=== PATIENT | female | born 1995 | race Caucasian/White ===

== ENCOUNTER 2016-09-08 22:54 | Emergency (ER) | payer BC ==
[~2016-09-08] VITALS: Ht 165.1 cm; Wt 55.0 kg
[2016-09-08] MEDS ORDERED: DESO1TAB17 PO (23:08)
[2016-09-09] MEDS ORDERED: SODIUM CHLORIDE 0.9% 1,000 ML IV ONE (00:44)
[2016-09-09 01:12] LABS: CHLORIDE 108 mEq/L (98-107)
[2016-09-09 01:13] LABS: BASOPHILS % 0.5 % (0.0-2.0); EOSINOPHILS % 0.9 % (0.0-5.0); HEMATOCRIT. 35.9 % (36.0-48.0); HEMOGLOBIN. 12.1 g/dL (12.0-16.0); MEAN CORPUSCULAR HEMOGLOBIN 27.2 pg (28.0-32.0); MEAN CORPUSCULAR VOLUME 80.7 fL (81.0-99.0); MEAN PLATELET VOLUME 9.1 fl (7.4-10.4); MONOCYTES % 7.9 % (2.0-8.0); NEUTROPHILS % 75.7 % (40.0-76.0); PLATELET 231 x1000/uL (130-400); RED BLOOD CELL COUNT 4.45 mill/uL (4.2-5.4); RED CELL DISTRIBUTION WIDTH 13.7 % (11.6-14.6)
[2016-09-09 01:21] LABS: CARBON DIOXIDE 26 mEq/L (21-32)
[2016-09-09 02:30] VITALS: BP 143/78
== END 2016-09-09 07:17 | disposition home or self-care (01) ==
LOC: ER 23:08
DX: R42 Dizziness and giddiness (principal); F12.10 Cannabis abuse, uncomplicated; R11.0 Nausea; R61 Generalized hyperhidrosis; Z88.1 Allergy status to other antibiotic agents
CPT/HCPCS: 36415; 80053; 81025; 85025; 85379; 93005; 96360; 99285; J7030